=== PATIENT | male | born 1985 | race Caucasian/White ===

== ENCOUNTER 2017-04-30 18:59 | Emergency (ER) | payer SELFPAY ==
[2017-04-30 19:07] VITALS: BP 132/88; PULSE 83; TEMP 98.1; BMI 26.6
--- NOTE | 2017-04-30 19:23 | PDOC ---
History of Present Illness - General History Source: Patient, Parent(s) - History of Present Illness Initial Comments: 04/30/17 20:03 The patient is a 31 year old male, with no significant past medical history, who presents to the emergency department with right shoulder pain s/p fall for approx. 24 hours. The patient reports he slipped and fell approx. 10 feet down stairs in his apartment and tumbled while falling hitting his right shoulder. The patient states he has right shoulder pain that is made worse with movement and abduction. The patient reports dislocating his right shoulder approx. 3 years ago from a fall. The patient denies taking pain medications. The patient denies loss of consciousness and denies dizziness prior to falling. He denies hitting his head and denies neck or back pain. Patient's father assisted with translation for the patient. He denies any recent fevers, chills, headache or dizziness. He denies any recent nausea, vomit, diarrhea or constipation. He denies any recent chest pain or shortness of breath. He denies any recent dysuria, frequency, urgency or hematuria. Past surgical history: None reported. Social History: Smoker for approx. 10 years. Patient states he smokes a few cigarettes a day. Denies recreational drug use. <Kris Raya - Last Filed: 04/30/17 20:31> <Nisreen Felix - Last Filed: 05/01/17 02:18> - General Chief Complaint: Pain, Acute Stated Complaint: PAIN AFTER FALL Time Seen by Provider: 04/30/17 19:17 Past History <Kris Raya - Last Filed: 04/30/17 20:31> - Past Medical History Other medical history: RIGHT SHL DISOLCATION - Psycho/Social/Smoking Cessation Hx Anxiety: No Suicidal Ideation: No Smoking History: Unknown if ever smoked Have you smoked in the past 12 months: No Hx Alcohol Use: No Drug/Substance Use Hx: No Substance Use Type: None <Nisreen Felix - Last Filed: 05/01/17 02:18> - Past Medical History Allergies/Adverse Reactions: Allergies Allergy/AdvReac Type Severity Reaction Status Date / Time No Known Allergies Allergy Verified 04/30/17 19:00 Home Medications: Ambulatory Orders NK [No Known Home Medication] 12/08/14 Review of Systems - Review of Systems Comments:: 04/30/17 20:03 CONSTITUTIONAL: Absent: fever, chills, diaphoresis, generalized weakness, malaise, loss of appetite HEENT: Absent: rhinorrhea, nasal congestion, throat pain, throat swelling, difficulty swallowing, mouth swelling, ear pain, eye pain, visual Changes CARDIOVASCULAR: Absent: chest pain, syncope, palpitations, irregular heart rate, lightheadedness , peripheral edema RESPIRATORY: Absent: cough, shortness of breath, dyspnea with exertion, orthopnea, stridor, hemoptysis GASTROINTESTINAL: Absent: abdominal pain, abdominal distension, nausea, vomiting, diarrhea, constipation, melena, hematochezia GENITOURINARY: Absent: dysuria, frequency, urgency, hesitancy, hematuria, flank pain, genital pain MUSCULOSKELETAL: Absent: joint swelling SKIN: Absent: rash, itching, pallor HEMATOLOGIC/IMMUNOLOGIC: Absent: easy bleeding, easy bruising, lymphadenopathy, frequent infections ENDOCRINE: Absent: unexplained weight gain, unexplained weight loss, heat intolerance, cold intolerance NEUROLOGIC: Absent: headache, focal weakness or paresthesias, dizziness, unsteady gait, seizure, mental status changes, bladder or bowel incontinence PSYCHIATRIC: Absent: anxiety, depression, suicidal or homicidal ideation, hallucinations. <Kris Raya - Last Filed: 04/30/17 20:31> *Physical Exam - Vital Signs Last Vital Signs Temp Pulse Resp BP Pulse Ox 98.1 F 83 16 132/88 99 04/30/17 19:00 04/30/17 19:00 04/30/17 19:00 04/30/17 19:00 04/30/17 19:00 - Physical Exam Comments: 04/30/17 20:05 General: Patient is alert and in no acute distress. Speech is clear and appropriate. Head: Atraumatic and nontender. HEENT: Pupils are equal round and reactive to light, extraocular movements are intact. The tympanic membranes are clear, no hemotympanum. No facial deformity/ tenderness, no septal hematoma. The oropharynx is clear. Neck: The trachea is midline, there is no stridor. There is no midline cervical spine tenderness, full range of motion of neck. Chest: Nontender, no ecchymosis or abrasions. Heart: S1-S2, regular rate and rhythm. No murmurs. Lungs: +Rare scattered bilateral expiratory wheezing. Good air exchange. Symmetric chest rise. Abdomen: Soft/nontender/nondistended. Bowel sounds are normal. There is no abdominal or flank ecchymosis. Back/Pelvis: There is no midline spine tenderness or step-off. Pelvis is stable and nontender. Extremities: +Right upper extremity pain with abduction of the arm greater than 30 degrees but no deformity, ecchymosis, or point tenderness of the shoulder or clavicle. 2+ distal pulses throughout. Neuro: Alert and oriented x3. Cranial nerves II through XII are intact. 5 out of 5 motor strength x4 extremities. [id number] is intact. No pronator drift. Gait is stable. Skin: No abrasions/hematomas/lacerations. Psych: Affect is appropriate. <Kris Raya - Last Filed: 04/30/17 20:31> - Vital Signs Last Vital Signs Temp Pulse Resp BP Pulse Ox 98.1 F 83 16 132/88 99 04/30/17 19:00 04/30/17 19:00 04/30/17 19:00 04/30/17 19:00 04/30/17 19:00 <Nisreen Felix - Last Filed: 05/01/17 02:18> ED Treatment Course - RADIOLOGY Radiograph Interpretation: 04/30/17 20:32 Right shoulder X-Ray Reported by Dr. Deb Chahal Impression - No gross bone or soft tissue abnormality seen. <Kris Raya - Last Filed: 04/30/17 20:31> Progress Note - Progress Note Progress Note: Documentation has been prepared under my direction and personally reviewed by me in its entirety. I attest that this documented accurately reflects all work, treatment, procedures and medical decision making performed by me. <Nisreen Felix - Last Filed: 05/01/17 02:18> Medical Decision Making - Medical Decision Making As noted above, this 31-year-old man, otherwise healthy with a history of right shoulder injuries presents with right shoulder pain after falling down a flight of stairs. He had no loss of consciousness or other complaints other than right shoulder pain. Exam as noted above. As noted, right shoulder x-ray is interpreted as normal. Results discussed with the patient and his father. Since the patient has not had an orthopedist evaluate his right shoulder, and family requested orthopedic group in [place] (where they live), referral information for Dr. Nevarez/Dr. Hamlin was given to them. Patient did not want a sling and also deferred any nonsteroidal anti-inflammatories here. Patient will take [id number] ibuprofen/naproxen/acetaminophen as needed. <Nisreen Felix - Last Filed: 05/01/17 02:18> *DC/Admit/Observation/Transfer - Attestations Scribe Attestion: 04/30/17 20:06 Documentation prepared by Kris Raya, acting as medical representative for Nisreen Felix MD. <Kris Raya - Last Filed: 04/30/17 20:31> <Nisreen Felix - Last Filed: 05/01/17 02:18> Diagnosis at time of Disposition: Right shoulder strain Qualifiers: Encounter type: initial encounter Qualified Code(s): S46.911A - Strain of unspecified muscle, fascia and tendon at shoulder and upper arm level, right arm , initial encounter - Discharge Dispostion Disposition: HOME Condition at time of disposition: Stable - Referrals Referrals: Dwaine Nevarez MD [Staff Physician] - 1 week - Patient Instructions Printed Discharge Instructions: Shoulder Sprain Additional Instructions: Ice to right shoulder for the next 24 hours Ibuprofen/naproxen/acetaminophen as needed for pain follow-up with Dr. Hamlin/Dr. Nevarez (orthopedists) within the next week Return to ER if you have severe pain
== END 2017-04-30 21:03 | disposition home or self-care (01) ==
LOC: FER 18:59
DX: S46.911A Strain of unspecified muscle, fascia and tendon at shoulder and upper arm level, right arm, initial encounter (principal); W10.9XXA Fall (on) (from) unspecified stairs and steps, initial encounter; Y93.89 Activity, other specified; Y92.009 Unspecified place in unspecified non-institutional (private) residence as the place of occurrence of the external cause
CPT/HCPCS: 73030-TC-RT; 99282-25